=== PATIENT | male | born 1980 | race African-American/Black ===

== ENCOUNTER 2022-12-17 07:46 | Outpatient (CLI) | payer BC, SELFPAY | END 2022-12-17 07:47 | disposition home or self-care (01) | LOC: AMB 01-06 14:49 | PROVIDERS: Visit Provider Family Medicine | DX: I50.9 Heart failure, unspecified (principal); I10 Essential (primary) hypertension; R00.0 Tachycardia, unspecified | CPT/HCPCS: A0425; A0427 ==